=== PATIENT | male | born 1975 | race Caucasian/White ===

== ENCOUNTER 2025-09-02 16:18 | Inpatient (IN) | payer MEDICARE, MEDICAID ==
[~2025-09-02] VITALS: Ht 177.8 cm; Wt 90.4 kg
[2025-09-02] MEDS ORDERED: potassium Cl 40MEQ/270ML bag 270 ML IV PRN (16:30)
[2025-09-02] MEDS ORDERED: dextrose 50%-water 50ml dispensing syringe IV PRN ×4 (16:30→18:00)
[2025-09-02] MEDS: Insulin Reg/NS 100units/100mL 100 ML IV SCH (16:54)
[2025-09-02] MEDS: ringers solution, lacted 1,000 ML IV SCH ×2 (16:55→16:56)
--- NOTE | 2025-09-02 16:57 | Physician Documentation ---
History of Present Illness ~ General Chief Complaint: Hyperglycemia Stated Complaint: TRANSFER Time Seen by MD: 16:27 History of Present Illness Initial Comments CC: Transfer for DKA HPI: The patient went into the emergency room and outside hospital because he felt his equilibrium was off they found his sugar was over 700 and he was in DKA. He was started on an insulin drip and given IV Rocephin as well as calcium gluconate magnesium Zofran and Protonix. Miah's briefly on Levophed but is off Levophed now. Glucose outside hospital was 691 creatinine 1.8 calcium 8.2 bicarb 16 anion gap 22 small blood acetone GFR was 44. At 1:40 p.m.. Initial labs show glucose of 788 bicarb of 14 and anion gap of 29. Lactate was 2.5 x- ray that show any pneumonia. White count 5 hemoglobin 13 six. Currently he is feeling much better does not have any symptoms other than feeling thirsty. De nies any pain. No recent fevers or chills dysuria cough, abdominal pain or chest pain. ECG showed sinus tachycardia with no signs of STEMI or STEMI equivalent at the outside facility ROS: Feeling disequilibrium thirst no other acute complaints PMH: Diabetes on oral medication Medication Reconciliation Allergies: Coded Allergies: No Known Allergies (Unverified , 09/02/25) Physical Exam Physical Exam Vital Signs: Temperature: 98.7, Source: Oral, Heart Rate: 94, Respiratory Rate: 18, BP: 124/69, Pulse Oximetry: 98, Weight: 90.400 Oxygen Flow Rate: 0 Physical Exam General: Awake no distress. Verbal Head: No trauma Eyes: Nl lids Nl conjunctiva. No eye discharge ENT: Oropharynx dry Neck: Supple. No JVD. No visible mass Resp: Rate normal. No respiratory distress. No retractions. Normal air flow. No wheezes, rhonchi, or rales. Heart: Regular rhythm. No murmur. No rub Abdomen: Soft. Nontender. No guarding. No rebound Musc/skeletal: No calf or popliteal tenderness. No edema Skin: No rash. No petechiae. Not diaphoretic Neuro: Alert, oriented. Normal speech normal gross sensory and motor exam Psych: Normal mood and affect : Lymph: Progress Progress Note Spoke with the hospitalist in-person we will assume care. Results/Orders Results/Orders Orders - SYLVESTER CHESTER MD * Undefined Nursing Orders* ONCE (09/02/25 16:27) * Blood Glucose Assessment * Q1H (09/02/25 16:27) CMP (09/02/25 16:27) PHOS (09/02/25 16:27) MG (09/02/25 16:27) Ringers Solution, Lacted (Lactated Ringe (09/02/25 16:30) Dextrose 50%-Water (Dextrose 50%-Water S (09/02/25 16:30) * Undefined Nursing Orders* DAILY (09/02/25 16:27) Potassium Cl 40meq/1/2ns 520ml (Potassiu (09/02/25 16:30) Potassium Cl 40meq/270ml Bag (Potassium (09/02/25 16:30) Magnesium Sulf-Water 2g/50ml (Magnesium (09/02/25 16:30) Sodium Phos 15mmol/D5 255ml (Sodium Phos (09/02/25 16:30) Insulin Reg/Ns 100units/100ml (Myxredlin (09/02/25 16:35) Dextrose 50%-Water (Dextrose 50%-Water S (09/02/25 16:35) * Blood Glucose Assessment * Q1H (09/02/25 16:31) Page Hospitalist (09/02/25 17:37) Fill Out Med Reconciliation (09/02/25 17:37) Hgb A1c (09/02/25 16:41) PBNP (09/02/25 16:41) CK (09/02/25 16:41) TSH (09/02/25 16:41) Completed Orders - SYLVESTER CHESTER MD Ringers Solution, Lacted (Lactated Ringe (09/02/25 16:30) Medications Received in ER Medications (Trade) Dose Ordered Sig/Sarai Route PRN Reason Start Time Stop Time Status Last Admin Dose Admin Lactated Ringer's 1,000 ml @ 1,000 mls/hr Q1H IV 09/02/25 16:30 09/02/25 17:29 DC 09/02/25 16:55 1,000 MLS/HR Lactated Ringer's 1,000 ml @ 250 mls/hr Q4H IV 09/02/25 16:30 09/02/25 18:53 250 MLS/HR Insulin Human Regular 100 ml @ 9 mls/hr Q11H7M IV 09/02/25 16:35 09/02/25 16:54 9 MLS/HR Sodium Chloride 1,000 ml @ 100 mls/hr Q10H IV 09/02/25 17:55 09/02/25 18:53 100 MLS/HR (K-DUR tablet) 20 meq Q4H PRN PO Potassium 3.1-3.4 09/02/25 17:55 09/05/25 17:54 09/02/25 18:52 20 MEQ Vital Signs 09/02/25 09/02/25 09/02/25 16:19 17:40 17:44 Temp 98.7 98.7 Pulse 94 79 Resp 18 18 13 B/P (MAP) 124/69 118/73 (88) Pulse Ox 98 98 O2 Flow Rate 0 0 Laboratory Tests Test 09/02/25 16:30 09/02/25 16:41 09/02/25 17:33 Glucometer 360 H 294 H Prothrombin Time 10.3 INR International Normalized Ratio 1.0 Activated Partial Thromboplast Time 25 Coagulation Comments Sodium Level 139 Potassium Level 3.4 L Chloride Level 105 Carbon Dioxide Level 21.3 L Anion Gap 13 Blood Urea Nitrogen 16 Creatinine 1.53 H Estimated GFR/1.73 m2 48 BUN/Creatinine Ratio 10.5 Glucose Level 383 H Lactic Acid Level 2.4 H Calcium Level 8.8 Phosphorus Level 2.1 L Magnesium Level 2.2 Total Bilirubin 0.4 Aspartate Amino Transf (AST/SGOT) 7 L Alanine Aminotransferase (ALT/SGPT) 14 Alkaline Phosphatase 81 Total Creatine Kinase 26 L Pro-B-Type Natriuretic Peptide < 30 Total Protein 6.5 Albumin 3.2 L Globulin 3.3 Albumin/Globulin Ratio 1.0 L Thyroid Stimulating Hormone (TSH) 0.42 Chemistry Comments Medical Decision Making Additional information obtaine: N/A Findings See MDM See MDM Differential Diagnosis MDM: Limited: (2 points from category 1 or one discussion with independent historian). Moderate: one of the following (3 points from category 1, or independent interpretations of tests performed by another physician/QHP: (ct,ecg,rad robe,rhythm strip,or comparing xray to prior), or discussion of tests or management with other professionals (not including [facility] ER doc/PA or family members.) High: (2 of 3 from : category 1 (3 points), independent interpretation of tests performed by another physician/QHP, and discussion of tests or management). Prior ER notes reviewed: Category 1: Number of Tests ordered or reviewed: >3 Number of Independent Historians: None Non [facility] ER notes reviewed: 1. Reviewed transferring physician's records 2. 3. Category 2: I independently interpreted the: EKG Category 3: Discussion with other professionals: Transferring physician and admitting physician [employer] Problems related to: ( )Challenges with access to Primary Care or Outpatient Speciality Care ( )Psychosocial circumstances such as mental health issues ( )Social environment: such as violence or substance abuse ( )Housing and economic circumstances: such as homelessness ( )Employment and unemployment: such as recently loss of employment ( )Occupational exposures or injuries: ( )Accessing ED outside of normal PCP hours ( )Language barrier: ( )Primary support group, including family circumstances: Prescription Mangement: Rx strength meds given in ED: IV fluids insulin drip Comorbid conditions include but are not limited to: Diabetes Testing or interventions considered: No abdominal pain or indication for CT abdomen and pelvis at this time Differential includes but is not limited to: DKA sepsis hyperglycemia, hyperosmolar nonketotic syndrome. The patient has been given IV fluids and antibiotics Sepsis or possible sepsis Management: CRITICAL CARE TIME Critical care time in minutes exclusive of separately billable procedures = 32 . 30 ml/kg NS or LR bolus ordered unless reason is noted below. Amount of fluid ordered in ml if less than 30 ml/kg: Greater than 30 per kilos he is given prior to arrival 30 ml/kg bolus not ordered due to: Fluids already given ()The patient is over BMI of 30 and ideal body weight was used to calculate with the fluid bolus. (Valid only if x in ()) Time sepsis or possible sepsis was diagnosed if not upon arrival: Prior to arrival at the other facility Perfusion Reassessment within 6 hours: Time of reassessment which must be after the IV fluid administration time: 6:00 p.m. Heart Exam: not tachycardic Lung Exam: No Crackling Capillary Refill: Not delayed Peripheral Pulses: Radially present Skin: Not mottled, pale Departure Time of Disposition: 16:57 Disposition: 09 ADMITTED INPATIENT Impression: Primary Impression: Diabetes mellitus with ketoacidosis Additional Impressions: Lactic acid acidosis Transient hypotension Referrals: NO PRIMARY CARE PROVIDER (PCP) Signature Scribe Signature: None Attestation: Scribed for Sylvester Chester MD by Sylvester Chester . 09/02/25 19:12 SYLVESTER CHESTER MD Sep 02, 2025 16:57
--- NOTE | 2025-09-02 17:52 | HISTORY AND PHYSICAL ---
History & Physical Providers to Complaint, vomiting ~ History of Present Illness Reason for Admit\Complaint: As above History of Present Illness This is a 50 years old white male with history of diabetes mellitus type 2, pacemaker status, presented today to our emergency department chief complaint vomiting; in addition The patient went into the emergency room and outside hospital because he felt his equilibrium was off they found his sugar was over 700 and he was in DKA. He was started on an insulin drip and given IV Rocephin as well as calcium gluconate magnesium Zofran and Protonix. Miah's briefly on Levophed but is off Levophed now. Glucose outside hospital was 691 creatinine 1.8 calcium 8.2 bicarb 16 anion gap 22 small blood acetone GFR was 44. At 1:40 p.m.. Initial labs show glucose of 788 bicarb of 14 and anion gap of 29. Lactate was 2.5 x-ray that show any pneumonia. White count 5 hemoglobin 13 six. Currently he is feeling much better does not have any symptoms other than feeling thirsty. Denies any pain. No recent fevers or chills dysuria cough, abdominal pain or chest pain. ECG showed sinus tachycardia with no signs of STEMI or STEMI equivalent at the outside facility. In emergency department patient was evaluated by physician was diagnosed with DKA, decision was made to admit patient for further evaluation treatment, started on insulin infusion, no additional complaint or concern. Allergies: Coded Allergies: No Known Allergies (Unverified , 09/02/25) Active prescriptions Reviewed and Reconciled Home Medications Patient is on insulin at home Past Medical History Past Medical History As in [facility] Past Surgical History Surgical History Comment As in [facility] Past Social History Social History Comment Drug abuse tobacco alcohol use live with the family good social support Health Maintenance Health Maintenance Noncontributory ROS ROS I review of systems Constitutional : no fever , no chills, or weakness. No diaphoresis. Allergic/Immunologic, no lymphadenopathy, no hives, no skin eruptions. Eyes, no recent visual changes, no eye pain, no photophobia. Ears, nose, mouth, throat, no sore throat, no nosebleed, no ear pain. Cardiovascular, no palpitations, skipped beats, chest pain, no peripheral edema, Respiratory, no dyspnea, orthopnea, cough, hemoptysis, chest wall pain. Gastrointestinal, no abdominal pain, nausea, patient has vomiting, no constipation or diarrhea. : no dysuria, hematuria, pelvic pain, urethral d/c. Endocrine, no polyuria, polydipsia, recent unintentional weight gain or loss. Hematologic/Lymphatic, no petechiae, no enlarged lymph nodes, no bone pain. Integumentary, no rash, no skin lesions, Musculoskeletal, no muscle aches, or pain, no muscle cramps, no recent change in gait Neurological, no dizziness, no headache, no syncope, no paresthesia. Psychiatric, no delusions, visual hallucinations, or hearing hallucinations. ROS - in rest is as in HPI. Exam Vitals: Vital Signs Date Time Temp Pulse Resp B/P (MAP) Pulse Ox O2 Delivery O2 Flow Rate FiO2 09/02/25 17:44 98.7 79 13 118/73 (88) 98 0 Vital signs, stable ,afebrile. Pulse Oximetry reflects adequate oxygenation. BMI is 28, weight 90 kg General: well developed, well nourished. Awake , alert, and oriented x4, resting comfortably in the bed, in no acute distress . Skin: Warm, dry, no pallor, no rash or petechiae. HEENT: Atraumatic, normocephalic, EOMI, anicteric sclera B; pink conjunctiva; PERRLA, normal oropharynx, moist oral and nasal mucosa. Tympanic membrane , nose , throat clear. Neck: Trachea midline. Supple, full range of motion, no JVD, bruit , hepatojugular reflex , lymphadenopathy or masses, or other lesions Cardiac: Regular rhythm, regular rate no murmurs, rubs, or gallops. Normal S1 and S2, no S3 noticed. PMI is normal. Respiratory: Equal breath sounds bilaterally, no tachypnea; lungs clear to auscultation bilaterally, no wheezing ,rub or rales, or crackles. Chest wall is symmetric and without deformity. No signs of trauma. Chest wall is nontender. No signs of respiratory distress. Resonance is normal upon percussion bilaterally. Gastrointestinal: Abdomen symmetric, non-distended, soft, non-tender, normal bowel sounds x4 quadrant, normoactive, no hepatosplenomegaly , no masses , no bruit, no flank pain bilaterally. No voluntary guarding, rebound, or rigidity. No tenderness to percussion. No pulsatile masses. Equal femoral pulses. No Goff's sign or McBurney point tenderness. Back; no CVA tenderness bilaterally, no deformities. Neck and back are without deformity as well. No tenderness noted on palpation of the spinous processes. Spinous processes are midline. Cervical, thoracic, and lumbar paraspinal muscles are not tender and are without spasm. : normal external genitalia, without lesions, swelling, masses or tenderness. Musculoskeletal: Extremities, normal range of motion, non-tender, muscle strength 5/5 x 4. Negative Homans signs bilaterally on lower extremity. Distal pulses full symmetrical, no clubbing, cyanosis , edema. Neurological: Speech is clear, alert, and oriented x 4. No motor or sensory deficit, deep tendon reflexes normal, cerebellar intact. Cranial nerves II-XII intact. Psych: Alert and or appropriate, normal affect. Vascular: Good distal pulses, which are equal x4; capillary refill less than 2 seconds. Lymphatic, no lymphadenopathy. Diagnostic Data Last Recorded Lab Results: 09/02/25 1641 Advance Care Planning Advanced Care plannin - 30 Minutes Additional Plan Assessment Diabetes mellitus type 2 uncontrolled DKA Hypovolemia associated with hypovolemic shock Lactic acidosis Hypokalemia Hypophosphatemia Acute kidney injury GFR 48, secondary to vasomotor nephropathy Hypoalbuminemia Sick sinus syndrome treated with pacemaker Plan Patient is on insulin infusion Hyperglycemia sliding scale Correct electrolytes PT evaluation and treatment CT chest abdomen and pelvis pending Additional lab work pending Keep patient well hydrated euvolemic I reconciled home medication DVT gastropathy prophylaxis addressed Sepsis Screening Reassessment Date: Sep 02, 2025 Date of Service: Sep 02, 2025 Billing Provider: ELSA PRICE MD Common Visit Codes: [id number] INP/OBS CARE (HIGH) ELSA PRICE MD Sep 02, 2025 17:52
[2025-09-02] MEDS ORDERED: magnesium sulf-water 2g/50mL 50 ML IV PRN (17:55)
[2025-09-02] MEDS ORDERED: bisacodyl 10mg suppository rectal RC PRN (17:55)
[2025-09-02] MEDS ORDERED: metoclopramide 5 mg/ml inj IV PRN (17:55)
[2025-09-02] MEDS ORDERED: HYDROcodone/acetaminophen 5mg/325mg tablet PO PRN (17:55)
[2025-09-02] MEDS ORDERED: magnesium Cl slow-release 64mg tablet PO PRN (17:55)
[2025-09-02] MEDS ORDERED: acetaminophen 650mg rectal suppository RC PRN (17:55)
[2025-09-02] MEDS ORDERED: potassium Cl 40MEQ/1/2NS 520ml 520 ML IV PRN (17:55)
[2025-09-02] MEDS ORDERED: magnesium hydroxide 30ml (MOM) UD suspension PO PRN (17:55)
[2025-09-02] MEDS ORDERED: HYDROcodone/acetaminophen 10/325mg tab PO PRN (17:55)
[2025-09-02] MEDS ORDERED: mag hydrox/Alum hydrox/simeth 30ml oral suspension PO PRN (17:55)
[2025-09-02] MEDS ORDERED: ondansetron 4mg rapidly disintigrating tab PO PRN (17:55)
[2025-09-02] MEDS ORDERED: ondansetron/PF 4mg/2ml inj IV PRN (17:55)
[2025-09-02] MEDS ORDERED: magnesium sulf-water 4G/100mL 100 ML IV PRN (17:55)
[2025-09-02] MEDS ORDERED: glucagon, human recombinant 1mg kit SUBCUT PRN (18:00)
[2025-09-02] MEDS ORDERED: DEXTROSE 15 GM of carb/4 tabs (each vial/BOTTLE has 4 tablets) PO PRN ×2 (18:00)
[2025-09-02 18:17] LABS: APTT 25 SECONDS (22-32); INR 1.0 INR
[2025-09-02] MEDS: docusate sod 100mg capsule PO SCH (18:19)
[2025-09-02] MEDS: potassium Cl 20 mEq SR tablet PO PRN (18:52)
[2025-09-02] MEDS: heparin, porcine 5000 units/ml vial SQ SCH (18:52)
[2025-09-02] MEDS: normal saline 1000ml 1,000 ML IV SCH (18:53)
[2025-09-02] MEDS: K and/or MAG REPLACEMENT MC SCH (18:53)
[2025-09-02 19:16] LABS: LEUKOCYTE ESTERASE ,URINE NEGATIVE (Neg); NITRITES, URINE NEGATIVE (Neg); OCCULT BLOOD,URINE NEGATIVE (Neg)
--- NOTE | 2025-09-02 19:18 | RADIOLOGY REPORT ---
EXAM: CT CT ABDOMEN PELVIS History: sepsis Vomiting on vasopressors Comparison Study: None TECHNIQUE: Multidetector CT of the abdomen and pelvis without IV contrast. Axial, coronal and sagittal multiplanar reformats were obtained from the axial data set by the technologist. Radiation Dose Information: CT Dose: CTDI volume is 28.98 mGy. Dose-length product is 1542.41 mGy*cm FINDINGS: Minimal right basilar atelectasis. Partially visualized heart is unremarkable. Mild hepatomegaly. Otherwise, liver, spleen, gallbladder, and adrenal glands are unremarkable. Peripancreatic fat stranding. Mild nonspecific bilateral perinephric fat stranding. Otherwise, Kidneys and Ureters unremarkable. Significant distention of the urinary bladder up to the level of the lower vertebral body of L3. Prostate measures 3.8 x 4.5 by 4.2 cm. Stomach is unremarkable. Small bowel loops are unremarkable. Appendix is unremarkable. Moderate amount of fecal material within the colon. No evidence of intraperitoneal free air or free fluid. No evidence of aortic aneurysm. Minimal body wall edema. Small fat containing bilateral inguinal hernias. No evidence of acute osseous abnormalities. IMPRESSION: Peripancreatic fat stranding consistent with mild acute pancreatitis. Significant distention of the urinary bladder. Consider Dowling catheter placement if patient unable to void. Moderate amount of fecal material within the colon.
[2025-09-02 19:22] LABS: UA COLLECTION TYPE NON-SPECIFIED
[2025-09-02 19:23] LABS: SQUAMOUS EPITHELIAL CELL,UR FEW /LPF (FEW)
[2025-09-02 19:24] LABS: AMORPHOUS URATES 1+; MUCUS STRANDS NONE SEEN /LPF (Neg)
[2025-09-02 19:40] LABS: URINE AMPHETAMINE SCREEN NEGATIVE (Neg); URINE BARBITUATE SCREEN NEGATIVE (Neg); URINE BENZODIAZEPINES SCREEN NEGATIVE (Neg); URINE CANNABINOID SCREEN NEGATIVE (Neg); URINE COCAINE SCREEN NEGATIVE (Neg); URINE METHADONE SCREEN NEGATIVE (Neg); URINE OPIATE SCREEN NEGATIVE (Neg); URINE PHENCYCLIDINE SCREEN NEGATIVE (Neg)
[2025-09-02] MEDS: insulin glargine (Lantus) pen - multi-dose SQ SCH (20:00)
[2025-09-02] MEDS: INSULIN LISPRO 100 UNIT/ML INSULN.PEN MULTI-DOSE SQ SCH (20:01)
[2025-09-02 22:00] VITALS: BP 122/68; PULSE 90; RESP 15; TEMP 97.9; O2SAT 98
[2025-09-02 22:00] LABS: CREATININE 1.21 MG/DL (0.60-1.10); PHOSPHORUS 1.3 MG/DL (2.3-4.5); PRO BRAIN NATRIURETIC PEPTIDE 38 PG/ML (0-125); TOTAL CARBON DIOXIDE 24.8 MMOL/L (24-32); eCRCL 74 ML/MIN; eGFR 63 ML/MIN
[2025-09-02] MEDS: sodium phos 15mmol/D5 255mL 255 ML IV PRN (22:57)
[2025-09-02] MEDS: potassium Cl 40MEQ/1/2NS 520ml 520 ML IV PRN (23:04)
[2025-09-02] MEDS ORDERED: LANTUS SUBCUT (23:32)
[2025-09-02] MEDS ORDERED: EMPA10TA PO (23:32)
[2025-09-02] MEDS ORDERED: METF-437 PO (23:32)
[2025-09-02] MEDS ORDERED: ATEN-27 PO (23:32)
[2025-09-02] MEDS ORDERED: GLIP5TAB23 PO (23:32)
[2025-09-02] MEDS ORDERED: TRAZ150T78 PO (23:32)
[2025-09-02] MEDS ORDERED: PRAZ1CAP5 PO (23:32)
[2025-09-02] MEDS ORDERED: ASPI-611 PO (23:32)
[2025-09-02] MEDS ORDERED: OMEP40CA21 PO (23:32)
[2025-09-02] MEDS ORDERED: SERT100T PO (23:32)
[2025-09-02] MEDS ORDERED: LOSA-415 PO (23:32)
[2025-09-03] VITALS (7 sets, daily range): BP systolic 123–145; BP diastolic 65–88; PULSE 80–100; RESP 13–17; TEMP 97.1–98.1; O2SAT 95–98
[2025-09-03] MEDS ORDERED: GABA-1555 PO (01:16)
[2025-09-03] MEDS: magnesium sulf-water 2g/50mL 50 ML IV PRN (01:47)
[2025-09-03] MEDS: potassium Cl 20 mEq SR tablet PO PRN (03:27)
[2025-09-03 04:12] LABS: MEAN PLATELET VOLUME 7.6 FL (7.4-10.4); RED CELL DISTRIBUTION WIDTH 13.3 % (11.5-14.5)
[2025-09-03 04:15] LABS: CREATININE 0.87 MG/DL (0.60-1.10); TOTAL CARBON DIOXIDE 22.7 MMOL/L (24-32); eCRCL 103 ML/MIN; eGFR > 90 ML/MIN
[2025-09-03 04:16] LABS: CHOL/HDL RATIO 6.9 (0.00-4.99); LDL CHOLESTEROL 192 MG/DL (50-100); PHOSPHORUS 3.0 MG/DL (2.3-4.5)
[2025-09-03] MEDS ORDERED: DEXTROSE 15 GM of carb/4 tabs (each vial/BOTTLE has 4 tablets) PO PRN ×2 (04:25)
[2025-09-03] MEDS ORDERED: glucagon, human recombinant 1mg kit SUBCUT PRN (04:25)
[2025-09-03] MEDS ORDERED: dextrose 50%-water 50ml dispensing syringe IV PRN ×2 (04:25)
[2025-09-03] MEDS: pantoprazole 40mg Tablet.DR PO SCH (08:37)
[2025-09-03] MEDS: INSULIN LISPRO 100 UNIT/ML INSULN.PEN MULTI-DOSE SQ SCH ×2 (08:43)
[2025-09-03] MEDS: FLU VACC TS2025-26(6MOS UP)/PF (FLULAVAL) 45 MCG/0.5 ML SYRINGE IMVAC ONE (17:32)
--- NOTE | 2025-09-03 18:00 | CARDIOLOGY REPORT ---
APPROVED REPORT EXAM: Comprehensive 2D, Doppler, and color-flow Echocardiogram. Patient Location: [facility] Blood Pressure: 126/75 mmHg Heart Rate: 89 bpm Rhythm: NSR Indications Tachycardia Diabetes Pacemaker Mechanical Lead is Ariadna Nari MD No previous echo 2D Dimensions LA Diam 3.8 cm IVSd 1.2 (0.7-1.1cm) LVDd 4.4 cm PWd 1.2 (0.7-1.1cm) IVSs 2.1 (0.8-1.2cm) LVDs 2.5 (2.5-4.0cm) Aortic Root(2D) 3.7 cm PWs 1.7 (0.8-1.2cm) LVOT Diameter 2.02 (1.8-2.4cm) LVEF(%) 75.3 (>50%) Ao Asc Diam. 3.13 cm IVC 15.02 mm FS (%) 43.8 % SV 65.6 ml CO 5.9 L/min M-Mode Dimensions MV EPSS 0.4 (<0.5cm) Aortic Valve AoV Peak Brett. 136.6 cm/s AoV VTI 26.3 cm AO Peak GR. 7.5 mmHg AO Mean GR. 5 mmHg LVOT VTI 25.24 cm LVOT Peak Brett. 131.5 cm/s GISSELLE(VTI)/BSA 3.07 cm2/m2 GISSELLE (VTI) 3.07 cm2 AV DI 0.96 % Mitral Valve MV E Velocity 86.3 cm/s MV Peak Gr. 5 mmHg MV DECEL TIME 216 ms MV A Velocity 78.0 cm/s MV PHT 76 ms E/A Ratio 1.1 MVA (PHT) 2.89 cm2 MV VMax 108.5 cm/s TDI Medial E' P. V 8.43 cm/s E/Medial E' 10.2 Pulmonary Vein S1 Velocity 55.5 cm/s D2 Velocity 37.7 cm/s PVa Velocity 33.6 cm/s PVa Duration 108 msec LEFT VENTRICLE Normal LV size and function. Mild concentric hypertrophy. LVEF is 65%. RIGHT VENTRICLE RV appears normal in size and contractility. Pacemaker wire in right heart. ATRIA The left atrium size is normal. AORTIC VALVE Trileaflet AV appears sclerotic without stenosis. No insufficiency by color and spectral flow Doppler. MITRAL VALVE MV is thickened with mild annular thickening and no stenosis. Trace regurgitation by color and spectral flow Doppler. TRICUSPID VALVE TV appears structurally normal with trace regurgitation by color and spectral flow Doppler. PULMONIC VALVE Normal PV without stenosis, physiologic insufficiency by color and spectral flow Doppler. GREAT VESSELS The aortic root is normal in size. The ascending aorta is normal in size. The IVC is normal in size and collapses >50% with inspiration. PERICARDIUM There is no pericardial effusion. Other Information Study Quality: Adequate Conclusion Normal LV size and function. Mild concentric hypertrophy. LVEF is 65%. RV appears normal in size and contractility. Pacemaker wire in right heart. The left atrium size is normal. Trileaflet AV appears sclerotic without stenosis. No insufficiency by color and spectral flow Doppler. MV is thickened with mild annular thickening and no stenosis. Trace regurgitation by color and spectral flow Doppler. TV appears structurally normal with trace regurgitation by color and spectral flow Doppler. There is no pericardial effusion.
--- NOTE | 2025-09-03 18:37 | PROGRESS NOTE ---
Daily Progress Note Providers to CC ~ today, feeling better, tolerating medication fine Central Line/PICC still needed: No Dowling-Non Protocol Dowling Indications Met/Not Met: F/C Indications Not Met Antibiotic Timeout Antibiotic Ordered?: Yes MRSA Education MRSA Education Provided to pt: Yes Subjective As above Objective Vital Signs Date Time Temp Pulse Resp B/P (MAP) Pulse Ox O2 Delivery O2 Flow Rate FiO2 09/03/25 15:00 97.1 89 16 145/88 (107) 97 Room Air 09/02/25 20:36 0 Vital signs, stable ,afebrile. Pulse Oximetry reflects adequate oxygenation. B General: well developed, well nourished. Awake , alert, and oriented x4, resting comfortably in the bed, in no acute distress . Skin: Warm, dry, no pallor, no rash or petechiae. HEENT: Atraumatic, normocephalic, EOMI, anicteric sclera B; pink conjunctiva; PERRLA, normal oropharynx, moist oral and nasal mucosa. Tympanic membrane , nose , throat clear. Neck: Trachea midline. Supple, full range of motion, no JVD, bruit , hepatojugular reflex , lymphadenopathy or masses, or other lesions Cardiac: Regular rhythm, regular rate no murmurs, rubs, or gallops. Normal S1 and S2, no S3 noticed. PMI is normal. Respiratory: Equal breath sounds bilaterally, no tachypnea; lungs clear to auscultation bilaterally, no wheezing ,rub or rales, or crackles. Chest wall is symmetric and without deformity. No signs of trauma. Chest wall is nontender. No signs of respiratory distress. Resonance is normal upon percussion bilaterally. Gastrointestinal: Abdomen symmetric, non-distended, soft, non-tender, normal bowel sounds x4 quadrant, normoactive, no hepatosplenomegaly , no masses , no bruit, no flank pain bilaterally. No voluntary guarding, rebound, or rigidity. No tenderness to percussion. No pulsatile masses. Equal femoral pulses. No Goff's sign or McBurney point tenderness. Back; no CVA tenderness bilaterally, no deformities. Neck and back are without deformity as well. No tenderness noted on palpation of the spinous processes. Spinous processes are midline. Cervical, thoracic, and lumbar paraspinal muscles are not tender and are without spasm. : normal external genitalia, without lesions, swelling, masses or tenderness. Musculoskeletal: Extremities, normal range of motion, non-tender, muscle strength 5/5 x 4. Negative Homans signs bilaterally on lower extremity. Distal pulses full symmetrical, no clubbing, cyanosis , edema. Neurological: Speech is clear, alert, and oriented x 4. No motor or sensory deficit, deep tendon reflexes normal, cerebellar intact. Cranial nerves II-XII intact. Psych: Alert and or appropriate, normal affect. Vascular: Good distal pulses, which are equal x4; capillary refill less than 2 seconds. Lymphatic, no lymphadenopathy. Result Diagram: 09/03/25 0325 09/03/25 032 Coagulation Studies Laboratory Tests Test 09/02/25 16:41 Prothrombin Time 10.3 SECONDS (9.0-12.0) INR International Normalized Ratio 1.0 INR Activated Partial Thromboplast Time 25 SECONDS (22-32) Coagulation Comments Problem\Assessment\Plan Assessment Diabetes mellitus type 2 uncontrolled DKA Hypovolemia associated with hypovolemic shock Lactic acidosis Hypokalemia Hypophosphatemia Acute kidney injury GFR 48, secondary to vasomotor nephropathy Hypoalbuminemia Sick sinus syndrome treated with pacemaker Plan Hyperglycemia sliding scale Correct electrolytes PT evaluation and treatment CT chest abdomen and pelvis completed Additional lab work pending Keep patient well hydrated euvolemic I reconciled home medication DVT gastropathy prophylaxis addressed Date of Service: Sep 03, 2025 Billing Provider: ELSA PRICE MD Common Visit Codes: [id number] INP/OBS CARE(HIGH) ELSA PRICE MD Sep 03, 2025 18:37
[2025-09-03] MEDS: prazosin 5mg capsule PO SCH (21:33)
[2025-09-04] VITALS (8 sets, daily range): BP systolic 97–142; BP diastolic 61–86; PULSE 80–90; RESP 12–19; TEMP 97.3–98; O2SAT 94–98
[2025-09-04 06:34] LABS: MEAN PLATELET VOLUME 7.5 FL (7.4-10.4); RED CELL DISTRIBUTION WIDTH 13.2 % (11.5-14.5)
[2025-09-04 07:05] LABS: CREATININE 0.90 MG/DL (0.60-1.10); TOTAL CARBON DIOXIDE 22.8 MMOL/L (24-32); eCRCL 99 ML/MIN; eGFR 89 ML/MIN
[2025-09-04] MEDS ORDERED: non-formulary drug (Omeprazole (Prilosec) 1 CAP) PO SCH (08:00)
[2025-09-04] MEDS: aspirin 81mg, enteric-coated 1 TAB TABLET.DR PO SCH (08:45)
[2025-09-04] MEDS: EMPAGLIFLOZIN 10 MG TABLET PO SCH (08:49)
--- NOTE | 2025-09-04 18:57 | PROGRESS NOTE ---
Daily Progress Note Providers to CC Today patient is feeling better, no nausea and vomiting good appetite ~ Central Line/PICC still needed: No Dowling-Non Protocol Dowling Indications Met/Not Met: F/C Indications Not Met Antibiotic Timeout Antibiotic Ordered?: Yes MRSA Education MRSA Education Provided to pt: Yes Subjective As Above Objective Vital Signs Date Time Temp Pulse Resp B/P (MAP) Pulse Ox O2 Delivery O2 Flow Rate FiO2 09/04/25 15:00 97.5 86 12 127/75 (92) 98 Room Air 09/03/25 20:00 0.0 Vital signs, stable ,afebrile. Pulse Oximetry reflects adequate oxygenation. General: well developed, well nourished. Awake , alert, and oriented x4, resting comfortably in the bed, in no acute distress . Skin: Warm, dry, no pallor, no rash or petechiae. HEENT: Atraumatic, normocephalic, EOMI, anicteric sclera B; pink conjunctiva; PERRLA, normal oropharynx, moist oral and nasal mucosa. Tympanic membrane , nose , throat clear. Neck: Trachea midline. Supple, full range of motion, no JVD, bruit , hepatojugular reflex , lymphadenopathy or masses, or other lesions Cardiac: Regular rhythm, regular rate no murmurs, rubs, or gallops. Normal S1 and S2, no S3 noticed. PMI is normal. Respiratory: Equal breath sounds bilaterally, no tachypnea; lungs clear to auscultation bilaterally, no wheezing ,rub or rales, or crackles. Chest wall is symmetric and without deformity. No signs of trauma. Chest wall is nontender. No signs of respiratory distress. Resonance is normal upon percussion bilaterally. Gastrointestinal: Abdomen symmetric, non-distended, soft, non-tender, normal bowel sounds x4 quadrant, normoactive, no hepatosplenomegaly , no masses , no bruit, no flank pain bilaterally. No voluntary guarding, rebound, or rigidity. No tenderness to percussion. No pulsatile masses. Equal femoral pulses. No Goff's sign or McBurney point tenderness. Back; no CVA tenderness bilaterally, no deformities. Neck and back are without deformity as well. No tenderness noted on palpation of the spinous processes. Spinous processes are midline. Cervical, thoracic, and lumbar paraspinal muscles are not tender and are without spasm. : normal external genitalia, without lesions, swelling, masses or tenderness. Musculoskeletal: Extremities, normal range of motion, non-tender, muscle strength 5/5 x 4. Negative Homans signs bilaterally on lower extremity. Distal pulses full symmetrical, no clubbing, cyanosis , edema. Neurological: Speech is clear, alert, and oriented x 4. No motor or sensory deficit, deep tendon reflexes normal, cerebellar intact. Cranial nerves II-XII intact. Psych: Alert and or appropriate, normal affect. Vascular: Good distal pulses, which are equal x4; capillary refill less than 2 seconds. Lymphatic, no lymphadenopathy. Result Diagram: 09/04/25 0607 09/04/25 0607 Coagulation Studies Laboratory Tests Test 09/02/25 16:41 Prothrombin Time 10.3 SECONDS (9.0-12.0) INR International Normalized Ratio 1.0 INR Activated Partial Thromboplast Time 25 SECONDS (22-32) Coagulation Comments Problem\Assessment\Plan Assessment Diabetes mellitus type 2 uncontrolled DKA Hypovolemia associated with hypovolemic shock Lactic acidosis Hypokalemia Hypophosphatemia Acute kidney injury GFR 48, secondary to vasomotor nephropathy Hypoalbuminemia Sick sinus syndrome treated with pacemaker Plan Hyperglycemia sliding scale Correct electrolytes PT evaluation and treatment CT chest abdomen and pelvis completed Additional lab work pending Keep patient well hydrated euvolemic I reconciled home medication DVT gastropathy prophylaxis addressed Date of Service: Sep 04, 2025 Billing Provider: ELSA PRICE MD Common Visit Codes: 59938-[id number] INP/OBS CARE(HIGH) ELSA PRICE MD Sep 04, 2025 18:57
[2025-09-05 02:00] VITALS: BP 108/73; PULSE 72; RESP 13; TEMP 97.3; O2SAT 98
[2025-09-05 06:10] LABS: MEAN PLATELET VOLUME 7.3 FL (7.4-10.4); RED CELL DISTRIBUTION WIDTH 13.4 % (11.5-14.5)
[2025-09-05 06:25] LABS: CREATININE 0.80 MG/DL (0.60-1.10); TOTAL CARBON DIOXIDE 29.0 MMOL/L (24-32); eCRCL 112 ML/MIN; eGFR > 90 ML/MIN
[2025-09-05 08:00] VITALS: RESP 16; O2SAT 97
[2025-09-05 08:12] VITALS: BP_SYST 128; PULSE 80
[2025-09-05] MEDS ORDERED: METO10TA3 PO (11:52)
--- NOTE | 2025-09-06 13:36 | DISCHARGE SUMMARY ---
Discharge Summary Providers to CC ~ Discharge Summary Admission Diagnosis: DM ; DKA Hospital Course DATE OF ADMISSION: September 02, 2025 DATE OF DISCHARGE: September 05, 2025 Discharge Diagnosis\Comment: DKA resolved Possible LENORE Electrolyte imbalance with hypokalemia hypophosphatemia Kidney injury present on admission likely secondary to dehydration secondary to DKA History of sick sinus syndrome with a pacemaker Operations\Procedures: None Consultants: None Complications: None Condition on DC: Stable Discharge Summary: This is a 50 years old male with known history of diabetes mellitus who presented to the hospital with nausea vomiting and abdominal pain and was admitted for DKA; he received IV insulin and fluid resuscitation and electrolyte replacement; he has DKA resolved that patient condition improved; patient is not adherent to his management of his diabetes which was reinforced and his mother said that history we will help him out; there are no complication during his stay on the day of discharge patient is stable and is discharged home to follow up with his primary care physician within a week Blood work on discharge white count 5.5 H&H 12.9/37 with 181 platelets; sodium 143 potassium 3.6 CO2 29 BUN 20 and creatinine 0.[address] of the abdomen and pelvis upon admission which showed peripancreatic fat stranding consistent with possible acute pancreatitis with significant distention of the urinary bladder and motor and amount of fecal material within the colon; his lipase was within normal limits so unlikely that patient had episode of acute pancreatitis; echocardiogram showed an normal EF; cultures remain negative Patient was discharged home with prescription for Reglan 10 mg p.o. q.6 hours patient to continue his medication that he stated that he fall has all abdominal home getting aspirin 81 mg p.o. daily atenolol 25 mg p.o. daily Jardiance 10 mg p.o. daily gabapentin 1600 mg p.o. b.i.d. glipizide 5 mg p.o. daily insulin Lantus 40 units subQ q.h.s. losartan 25 mg p.o. daily omeprazole 40 mg p.o. daily prazosin 6 mg at bedtime sertraline 200 mg daily and trazodone 150 mg at bedtime In the physical examination temperature 97.3 heart rate 72 breathing 14 blood pressure 108/73 patient is alert oriented sitting up at the side of the bed HEENT normal oral mucosa no JVD lungs with normal bilateral entry no crackles no wheezing heart normal rate and rhythm S1-S2 no murmurs abdomen is soft nontender bowel sounds are present extremities no edema plus two pulses he is awake and alert *Problems/Diagnosis: (1) Diabetes mellitus with ketoacidosis Status: Acute (2) Lactic acid acidosis Status: Acute Total Time Spent on D/C: > 30 Minutes Date of Service: Sep 05, 2025 Billing Provider: RENAE SERRANO MD Common Visit Codes: 12585-OIB/OBS DISCH DAY >30min RENAE SERRANO MD Sep 06, 2025 13:36
== END 2025-09-05 12:50 | disposition home or self-care (01) | DRG 637 ==
LOC: ER 16:19 → ED HOLD 17:59 → PCU 3S 21:25
PROVIDERS: ADMIT Family Medicine; ATTEND Family Medicine
DX: E11.10 Type 2 diabetes mellitus with ketoacidosis without coma (principal); K85.80 Other acute pancreatitis without necrosis or infection; N17.0 Acute kidney failure with tubular necrosis; R57.1 Hypovolemic shock; I95.9 Hypotension, unspecified; E87.6 Hypokalemia; E88.09 Other disorders of plasma-protein metabolism, not elsewhere classified; E83.39 Other disorders of phosphorus metabolism; E86.1 Hypovolemia; I49.5 Sick sinus syndrome; E86.0 Dehydration; Z95.0 Presence of cardiac pacemaker; Z79.899 Other long term (current) drug therapy
CPT/HCPCS: 36415; 74176; 80053; 80061; 80305; 81001; 82550; 82948; 83036; 83605; 83690; 83735; 83880; 84100; 84443; 84484; 85025; 85610; 85730; 87040; 87081; 93306; 96372; 97116; 97161; 97530; 99291; G0378; J1644; J1815; J3480; J3490; J7030; J7120